=== PATIENT | female | born 1965 | race Two or more races ===

== ENCOUNTER 2022-05-12 07:59 | Emergency (ER) | payer OTHER, MEDICAID ==
[~2022-05-12] VITALS: Ht 152.4 cm; Wt 54.8 kg
[2022-05-12] MEDS ORDERED: cloNIDine HCL 0.1 MG TAB PO ONE (08:15)
[2022-05-12] MEDS ORDERED: LOSA-69 PO (09:02)
[2022-05-12 09:09] VITALS: BP 119/96
== END 2022-05-12 09:23 | disposition home or self-care (01) ==
LOC: ER 07:59
DX: I10 Essential (primary) hypertension (principal); Z76.0 Encounter for issue of repeat prescription

== ENCOUNTER 2023-04-23 13:07 | Emergency (ER) | payer OTHER, MEDICAID ==
[~2023-04-23] VITALS: Ht 152.4 cm; Wt 55.0 kg
[~2023-04-23 13:07] MED LIST: LOSA50TA46 PO
[2023-04-23 14:08] VITALS: BP 161/99; PULSE 88; RESP 16; TEMP 97.2; O2SAT 98
[2023-04-23] MEDS ORDERED: LOSA100T58 PO (14:21)
== END 2023-04-23 14:25 | disposition home or self-care (01) ==
LOC: ER 13:07
DX: I10 Essential (primary) hypertension (principal); Z76.0 Encounter for issue of repeat prescription; Z79.899 Other long term (current) drug therapy